=== PATIENT | female | born 1960 | race African-American/Black ===

== ENCOUNTER → 2016-05-27 | Outpatient (CLI) | payer OTHER | LOC: RAD 14:30 | PROVIDERS: ATTEND Physician Assistant | DX: R05 Cough (principal) | CPT/HCPCS: 71020 ==

== ENCOUNTER → 2016-07-17 | Outpatient (CLI) | payer OTHER ==
--- NOTE | 2016-07-17 18:34 | RADIOLOGY REPORT (SQ) ---
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 NUMBER OF VIEWS: Three views. TECHNIQUE: AP, lateral and oblique radiographic images acquired of the left foot. LIMITATIONS: None. FINDINGS: MINERALIZATION: Normal. 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 No acute osseous abnormality is seen. JOINTS: No effusions. SOFT TISSUES: No soft tissue swelling. No foreign body. OTHER: No other significant finding. IMPRESSION: Findings as described. TECHNICAL DOCUMENTATION: JOB ID: [id number] [employer]- All Rights Reserved
== END ==
LOC: OD 16:17
PROVIDERS: ATTEND Podiatrist Foot & Ankle Surgery
DX: Q66.9 Congenital deformity of feet, unspecified (principal)

== ENCOUNTER → 2016-07-25 | Outpatient (CLI) | payer OTHER ==
[2016-07-25 11:48] LABS: ABSOLUTE EOSINOPHILS # (AUTO) 0.2 10^3/uL (0.0-0.6); ABSOLUTE LYMPHOCYTES (AUTO) 1.3 10^3/uL (0.5-4.7); ABSOLUTE MONOCYTES (AUTO) 0.5 10^3/uL (0.1-1.4); BASOPHILS % (AUTO) 0.8 % (0-2); EOSINOPHILS % (AUTO) 3.4 % (0-6); HEMOGLOBIN 11.8 g/dL (12.0-15.5); HGB HCT DIFFERENCE -1.6; LYMPHOCYTES % (AUTO) 25.7 % (13-45); MEAN CORPUSCULAR HEMOGLOBIN 27.4 pg (27.0-33.4); MEAN CORPUSCULAR VOLUME 86 fl (80-97); MONOCYTES % (AUTO) 9.7 % (3-13); RED BLOOD COUNT 4.31 10^6/uL (3.72-5.28); RED CELL DISTRIBUTION WIDTH 13.7 % (11.5-14.0); SEGMENTED NEUTROPHILS % (AUTO) 60.4 % (42-78)
[2016-07-25 12:09] LABS: CHOLESTEROL 221.01 mg/dL (0-200); Direct HDL 69 mg/dL (>40); TRIGLYCERIDES 76 mg/dL (<150)
[2016-07-25 12:19] LABS: DIRECT LDL 98 mg/dL (<100)
== END ==
LOC: LAB 11:09
PROVIDERS: ATTEND Physician Assistant
DX: I10 Essential (primary) hypertension (principal); D50.8 Other iron deficiency anemias; E78.00 Pure hypercholesterolemia, unspecified; E55.9 Vitamin D deficiency, unspecified; Z79.899 Other long term (current) drug therapy; Z12.11 Encounter for screening for malignant neoplasm of colon
CPT/HCPCS: 36415; 80061; 82272; 82306; 82728; 84443; 85025

== ENCOUNTER 2016-08-08 08:46 | Day surgery (SDC) | payer OTHER ==
[2016-08-07 11:21] LABS: APPEARANCE,URINE CLEAR; BILIRUBIN,URINE NEGATIVE (NEGATIVE); GLUCOSE, URINE NEGATIVE (NEGATIVE); KETONES,URINE NEGATIVE (NEGATIVE); LEUKOCYTE ESTERASE,URINE NEGATIVE (NEGATIVE); NITRITE,URINE NEGATIVE (NEGATIVE); PROTEIN,URINE NEGATIVE (NEGATIVE); URINE SPECIFIC GRAVITY 1.014; UROBILINOGEN,URINE NEGATIVE mg/dL (<2.0)
[~2016-08-08 08:46] MED LIST: CEFAZOLIN 1 GM/D5W RTU 1 GM/50 ML RTUPB IV SCH; RINGERS SOLUTION,LACTATED 1,000 ML IV PRN
[2016-08-08] MEDS ORDERED: LIDOCAINE 2% INJ (20 MG/ML) 20 ML MDV ONE (09:32)
[2016-08-08] MEDS ORDERED: BUPIVACAINE HCL 0.5 % INJ/PF 30 ML SDV ONE (09:32)
[2016-08-08] MEDS ORDERED: FENTANYL CITRATE INJ/PF 100 MCG/2 ML AMPUL ONE (09:39)
[2016-08-08] MEDS ORDERED: MIDAZOLAM 2 MG/2 ML INJ ONE (09:39)
[2016-08-08] MEDS ORDERED: PROPOFOL INJ 200 MG/20 ML VIAL IV ONE (09:39)
[2016-08-08] MEDS ORDERED: DEXAMETHASONE SOD PHOSPHATE INJ 4 MG/1 ML VIAL ONE (11:11)
[2016-08-08] MEDS ORDERED: ONDANSETRON HCL INJ/PF 4 MG/2 ML SDV ONE (11:11)
--- NOTE | 2016-08-08 13:09 | [facility] OPERATIVE REPORT E ---
[facility] Operative Report NAME: SHADI TOLENTINO AGE: 55Y DATE OF SURGERY: ROOM: PREOPERATIVE DIAGNOSES: 1. Tailor bunion, left foot. 2. Digiti quinti varus, fifth toe, left foot. POSTOPERATIVE DIAGNOSIS: 1. Tailor bunion, left foot. 2. Digiti quinti varus, fifth toe, left foot. OPERATION: 1. Osteotomy, fifth metatarsal head, left foot. 2. Phalangectomy, fifth toe, left foot. SURGEON: KAT MCKENZIE D.P.M. INTRAOPERATIVE FINDINGS: Dislocation of the fifth metatarsophalangeal joint with diffuse metatarsal deviating laterally and throwing the fifth toe in an advanced varus location. This deviation of the fifth has created very painful, soft corns at the adjacent sides of the fourth and fifth toes. Intraoperative findings were confirmed clinically and radiographically. PROCEDURE: With the patient laying in the dorsal recumbent position, the left foot and leg were prepped and draped in the usual standard sterile orthopedic manner. After the local anesthesia was administered, which was a regional block infiltrating around the surgical field with a 50/50 mixture of 2% Xylocaine and 0.5% Marcaine, after the anesthetic effect was accomplished, the left leg was elevated approximately for 2 minutes and the left ankle pneumatic tourniquet was inflated up to 250 mmHg after the blood was exsanguinated from the left foot. The left leg was brought to the level of the table. Attention was directed right over the fifth metatarsophalangeal joint. A curvilinear incision was placed right over the joint. The initial incision was deepened. The superficial and deep subcutaneous tissues were dissected via blunt and sharp dissection. By this time, all bleeders were ligated. All vital structures were identified and protected from surgical trauma. Next, the periosteum was resected off bone and the level of the surgical neck of the fifth metatarsal was established. The osteotomy was marked and it was performed right at this anatomical area. This was an oblique osteotomy with 45 degrees of angulation to the long axis of the fifth metatarsal. The obliquity was from the medial proximal to lateral distal direction. The osteotomy was performed from dorsal to plantar direction, a [id number] osteotomy. After that, the head was shifted medially and slightly dorsally. The fifth metatarsophalangeal joint was aligned at this point. A protruding wedge of bone on the very distal lateral aspect of the fifth metatarsal was resected. With realignment of the fifth metatarsophalangeal joint, the fifth toe acquired a hammering deformity at this point. The decision was made to straighten the fifth toe in order to remove the fracture deformities of the digit. A curvilinear incision was placed right over the fifth toe. The initial incision was deepened. The superficial and deep subcutaneous tissues were dissected via blunt and sharp dissection. Again, all bleeders were ligated. All vital structures were protected from surgical trauma. Next, a transverse incision was placed right over the joint all the way through the tissue. Fractures were dissected off bone and the head of the proximal phalanx was brought into the surgical field. The head of the proximal phalanx was very irregular and hypertrophic. The very distal portion of the phalanx was removed. Enough bone was resected to allow the fifth toe to acquire a rectus position. The distal portion of the proximal phalanx was also remodeled to a more normal anatomical configuration. At this point, final evaluation was conducted of the two surgical sites. Correction was extremely satisfactory. At this point, the left ankle pneumatic tourniquet was deflated. Circulation to the left foot returned to normal immediately as the normal digital temperature became apparent. After that, both surgical sites were irrigated with copious amounts of sterile saline solution. At first, the capsule and fractures around the proximal interphalangeal joint of the fifth toe and the fifth metatarsophalangeal joints were closed with 3-0 Vicryl. The subcutaneous tissues from deep to superficial were closed with 3-0 Vicryl at both surgical sites and finally, the skin edges were repositioned and anchored down with 4-0 nylon using a continuous interlocking stitch. At this point, a Betadine compression dressing was applied around the surgical foot, which was followed with an Mohinder bandage and a surgical shoe. The patient tolerated all procedures well, left the operating room with stable vital signs and in good condition. The patient was take to the recovery room, alert, conscious and oriented. There are no permanent disabilities anticipated at this time. The patient was discharged home with instructions for postoperative care at home. The patient was allowed to return to a normal diet. The patient was given postoperative medications per Pain Medicine and antibiotics. The patient was instructed to ambulate only with crutches without bearing any weight on the left foot. DICTATING PHYSICIAN: KAT MCKENZIE D.P.M. [id number] PHY#: [id number] ID: [id number] JOB#: [id number] ACCT: [id number] cc:KAT MCKENZIE D.P.M. > MTDD
== END 2016-08-08 12:13 | disposition home or self-care (01) ==
LOC: SC 08:46
PROVIDERS: ATTEND Podiatrist Foot & Ankle Surgery
PROC: 0QBP0ZZ Excision of Left Metatarsal, Open Approach (ICD-10-PCS; 2016-08-08)
PROC: 0QSP0ZZ Reposition Left Metatarsal, Open Approach (ICD-10-PCS; 2016-08-08)
PROC: 0QSR0ZZ Reposition Left Toe Phalanx, Open Approach (ICD-10-PCS; 2016-08-08)
PROC: 0QBR0ZZ Excision of Left Toe Phalanx, Open Approach (ICD-10-PCS; principal; 2016-08-08 09:45)
DX: M21.622 Bunionette of left foot (principal); M21.172 Varus deformity, not elsewhere classified, left ankle; M19.90 Unspecified osteoarthritis, unspecified site; I10 Essential (primary) hypertension; K21.9 Gastro-esophageal reflux disease without esophagitis; E07.9 Disorder of thyroid, unspecified; Z79.899 Other long term (current) drug therapy; Z79.1 Long term (current) use of non-steroidal anti-inflammatories (NSAID)
CPT/HCPCS: 81001; 28124; 28110; J2250; J3490; J0690; J1100; J3010; J2405; J2704; 1480

== ENCOUNTER → 2016-08-14 | Outpatient (CLI) | payer OTHER ==
--- NOTE | 2016-08-14 16:39 | RADIOLOGY REPORT (SQ) ---
EXAM DESCRIPTION: FOOT LEFT COMPLETE COMPLETED DATE/TIME: 08/14/2016 4:09 pm REASON FOR STUDY: OTHER SPECIFIED POSTPROCEDURAL STATES Z98.890 OTHER SPECIFIED POSTPROCEDURAL STAT ES COMPARISON: 07/17/2016 left foot films NUMBER OF VIEWS: Three views. TECHNIQUE: AP, lateral and oblique radiographic images acquired of the left foot. LIMITATIONS: None. FINDINGS: Since the prior films on 07/17/2016, patient has had corrective surgery on the left 5th toe. 8 distal 5th metatarsal osteotomy is present in good alignment. There is been bony partial resection of the 5th toe proximal phalanx and distal phalanx at the interp halangeal joint. Joint space is widened. There is slight valgus angulation at the 5th toe interphal angeal joint. Small dorsal calcaneal spur. Mild bony spurring at the 1st tarsometatarsal joint IMPRESSION: Slight valgus angulation of the 5th toe at the level of the interphalangeal joint. The distal 5th metatarsal osteotomy is in good alignment. TECHNICAL DOCUMENTATION: JOB ID: [id number] [employer]- All Rights Reserved
== END ==
LOC: OD 15:48
PROVIDERS: ATTEND Podiatrist Foot & Ankle Surgery
DX: Z98.890 Other specified postprocedural states (principal)

== ENCOUNTER → 2016-09-25 | Outpatient (CLI) | payer OTHER ==
--- NOTE | 2016-09-26 17:55 | RADIOLOGY REPORT (SQ) ---
EXAM DESCRIPTION: FOOT LEFT COMPLETE COMPLETED DATE/TIME: 09/25/2016 11:56 am REASON FOR STUDY: POST-OP LT FOOT Z98.890 OTHER SPECIFIED POSTPROCEDURAL STATES COMPARISON: Left foot films 08/14/2016, 07/17/2016 NUMBER OF VIEWS: Three views. TECHNIQUE: AP, lateral and oblique radiographic images acquired of the left foot. LIMITATIONS: None. FINDINGS: MINERALIZATION: Normal. BONES: Post osteotomy, distal left 5th metatarsal metaphysis. Since 08/14/2016, there has been further demineralization of the left 5th metatarsal head. Minimal bony callus at the osteotomy site. No ma lalignment at the osteotomy site. JOINTS: No effusions. SOFT TISSUES: No soft tissue swelling. No foreign body. OTHER: No other significant finding. IMPRESSION: Minimal callus at the 5th metatarsal osteotomy. TECHNICAL DOCUMENTATION: JOB ID: [id number] [employer]- All Rights Reserved
== END ==
LOC: OD 11:43
PROVIDERS: ATTEND Podiatrist Foot & Ankle Surgery
DX: Z98.890 Other specified postprocedural states (principal)

== ENCOUNTER → 2016-10-30 | Outpatient (CLI) | payer OTHER ==
--- NOTE | 2016-10-30 10:11 | RADIOLOGY REPORT (SQ) ---
EXAM DESCRIPTION: FOOT LEFT COMPLETE COMPLETED DATE/TIME: 10/30/2016 10:00 am REASON FOR STUDY: POST-OP Z98.890 OTHER SPECIFIED POSTPROCEDURAL STATES COMPARISON: 07/17/2016, 08/14/2016, 09/25/2016 NUMBER OF VIEWS: Three views. TECHNIQUE: AP, lateral and oblique radiographic images acquired of the left foot. LIMITATIONS: None. FINDINGS: At the left 5th metatarsal distal metaphysis osteotomy, a persistent lucency is present wo rrisome for delayed union. Along the 4th metatarsal midshaft, there is periosteal new bone along its lateral aspect, similar ove r the series of exams possibly related to an old stress fracture. Mild joint space narrowing at the 1st metatarsophalangeal joint without bulky bony spurring. No acute fracture. No malalignment. Small bony spur at the calcaneal attachment of the Achilles ten don. IMPRESSION: Delayed union of the left 5th distal metatarsal metaphysis TECHNICAL DOCUMENTATION: JOB ID: [id number] [employer]- All Rights Reserved
== END ==
LOC: OD 09:41
PROVIDERS: ATTEND Podiatrist Foot & Ankle Surgery
DX: Z98.890 Other specified postprocedural states (principal); S92.352G Displaced fracture of fifth metatarsal bone, left foot, subsequent encounter for fracture with delayed healing

== ENCOUNTER → 2016-11-28 | Outpatient (CLI) | payer OTHER ==
--- NOTE | 2016-11-28 09:37 | RADIOLOGY REPORT (SQ) ---
EXAM DESCRIPTION: FOOT LEFT COMPLETE COMPLETED DATE/TIME: 11/28/2016 9:09 am REASON FOR STUDY: OTHER DEFORMITIES OF TOE(S) (ACQUIRED), LT FOOT, CONGENITAL DEFORMITY OF FE Q66.9 CONGENITAL DEFORMITY OF FEET, UNSPECIFIED M20.5X2 OTHER DEFORMITIES OF TOE(S) (ACQUIRED), LEFT FOOT COMPARISON: 10/30/2016 NUMBER OF VIEWS: Three views. TECHNIQUE: Weightbearing AP, lateral and oblique radiographic images acquired of the left foot. LIMITATIONS: None. FINDINGS: MINERALIZATION: Normal. BONES: No acute fracture or dislocation. There appears to be partial bony union of the previously de scribed osteotomy at the level of the distal 5th metatarsal with callus formation being identified. The previously described periosteal new bone along the lateral aspect of the 4th metatarsal appears u nchanged. . JOINTS: No effusions. SOFT TISSUES: No soft tissue swelling. No foreign body. OTHER: Achilles tendon spurring is again identified. IMPRESSION: On the current study there appears to be partial bony union of the previously described osteotomy at the level of the distal 5th metatarsal as noted above. Other findings as noted above TECHNICAL DOCUMENTATION: JOB ID: [id number] [employer]- All Rights Reserved
== END ==
LOC: OD 08:31
PROVIDERS: ATTEND Podiatrist Foot & Ankle Surgery
DX: Z98.890 Other specified postprocedural states (principal)

== ENCOUNTER → 2017-01-22 | Outpatient (CLI) | payer OTHER ==
[2017-01-22 08:49] LABS: ABSOLUTE EOSINOPHILS # (AUTO) 0.3 10^3/uL (0.0-0.6); ABSOLUTE LYMPHOCYTES (AUTO) 1.6 10^3/uL (0.5-4.7); ABSOLUTE MONOCYTES (AUTO) 0.5 10^3/uL (0.1-1.4); ABSOLUTE NEUT (AUTO) 3.8 10^3/uL (1.7-8.2); BASOPHILS % (AUTO) 0.7 % (0-2); EOSINOPHILS % (AUTO) 4.9 % (0-6); HEMATOCRIT 35.6 % (36.0-47.0); HEMOGLOBIN 11.7 g/dL (12.0-15.5); HGB HCT DIFFERENCE -0.5; LYMPHOCYTES % (AUTO) 25.2 % (13-45); MEAN CORPUSCULAR HEMOGLOBIN 27.7 pg (27.0-33.4); MEAN CORPUSCULAR HGB CONC 32.9 g/dL (32.0-36.0); MEAN CORPUSCULAR VOLUME 84 fl (80-97); MONOCYTES % (AUTO) 7.5 % (3-13); RED BLOOD COUNT 4.24 10^6/uL (3.72-5.28); RED CELL DISTRIBUTION WIDTH 13.8 % (11.5-14.0); SEGMENTED NEUTROPHILS % (AUTO) 61.7 % (42-78); WHITE BLOOD COUNT 6.2 10^3/uL (4.0-10.5)
[2017-01-22 09:10] LABS: ALANINE AMINOTRANSFERASE 35 U/L (9-52); ALBUMIN 4.2 g/dL (3.5-5.0); ALKALINE PHOSPHATASE 91 U/L (38-126); ANION GAP 10 (5-19); ASPARTATE AMINO TRANSFERASE 23 U/L (14-36); BILIRUBIN,DIRECT 0.2 mg/dL (0.0-0.4); BILIRUBIN,TOTAL 0.2 mg/dL (0.2-1.3); BLOOD UREA NITROGEN 15 mg/dL (7-20); CALCIUM 9.7 mg/dL (8.4-10.2); CARBON DIOXIDE 29 mmol/L (22-30); CHLORIDE 104 mmol/L (98-107); CHOLESTEROL 226.56 mg/dL (0-200); CREATININE RESULT 1.01 mg/dL (0.52-1.25); Direct HDL 77 mg/dL (>40); GLUCOSE 95 mg/dL (75-110); POTASSIUM 4.4 mmol/L (3.6-5.0); SODIUM 142.5 mmol/L (137-145); TOTAL PROTEIN 7.3 g/dL (6.3-8.2); TRIGLYCERIDES 56 mg/dL (<150); URIC ACID 5.7 mg/dL (2.5-7.5)
[2017-01-22 09:22] LABS: DIRECT LDL 113 mg/dL (<100)
== END ==
LOC: LAB 08:12
PROVIDERS: ATTEND Physician Assistant
DX: E78.2 Mixed hyperlipidemia (principal); E55.9 Vitamin D deficiency, unspecified; M10.9 Gout, unspecified; D50.8 Other iron deficiency anemias
CPT/HCPCS: 36415; 80053; 80061; 82306; 82728; 84550; 85025

== ENCOUNTER → 2017-09-03 | Outpatient (CLI) | payer OTHER ==
[2017-09-03 08:55] LABS: ABSOLUTE BASOPHILS # (AUTO) 0.1 10^3/uL (0.0-0.2); ABSOLUTE EOSINOPHILS # (AUTO) 0.2 10^3/uL (0.0-0.6); ABSOLUTE LYMPHOCYTES (AUTO) 1.4 10^3/uL (0.5-4.7); ABSOLUTE MONOCYTES (AUTO) 0.5 10^3/uL (0.1-1.4); ABSOLUTE NEUT (AUTO) 2.9 10^3/uL (1.7-8.2); BASOPHILS % (AUTO) 1.1 % (0-2); EOSINOPHILS % (AUTO) 4.5 % (0-6); HEMATOCRIT 35.9 % (36.0-47.0); HEMOGLOBIN 11.9 g/dL (12.0-15.5); LYMPHOCYTES % (AUTO) 28.1 % (13-45); MEAN CORPUSCULAR HEMOGLOBIN 27.8 pg (27.0-33.4); MEAN CORPUSCULAR HGB CONC 33.2 g/dL (32.0-36.0); MEAN CORPUSCULAR VOLUME 84 fl (80-97); MONOCYTES % (AUTO) 9.8 % (3-13); PLATELET COUNT 238 10^3/uL (150-450); RED BLOOD COUNT 4.27 10^6/uL (3.72-5.28); RED CELL DISTRIBUTION WIDTH 13.8 % (11.5-14.0); SEGMENTED NEUTROPHILS % (AUTO) 56.5 % (42-78); TOTAL CELLS COUNTED % (AUTO) 100 %; WHITE BLOOD COUNT 5.1 10^3/uL (4.0-10.5)
[2017-09-03 09:11] LABS: ALANINE AMINOTRANSFERASE 24 U/L (9-52); ALBUMIN 4.1 g/dL (3.5-5.0); ALKALINE PHOSPHATASE 85 U/L (38-126); ANION GAP 10 (5-19); ASPARTATE AMINO TRANSFERASE 25 U/L (14-36); BILIRUBIN,DIRECT 0.1 mg/dL (0.0-0.4); BILIRUBIN,TOTAL 0.5 mg/dL (0.2-1.3); BLOOD UREA NITROGEN 13 mg/dL (7-20); CALCIUM 9.3 mg/dL (8.4-10.2); CARBON DIOXIDE 30 mmol/L (22-30); CHLORIDE 105 mmol/L (98-107); CHOLESTEROL 202.92 mg/dL (0-200); GLUCOSE 86 mg/dL (75-110); TOTAL PROTEIN 7.3 g/dL (6.3-8.2); TRIGLYCERIDES 118 mg/dL (<150); URIC ACID 7.3 mg/dL (2.5-7.5)
[2017-09-03 09:21] LABS: DIRECT LDL 94 mg/dL (<100)
== END ==
LOC: LAB 07:40
PROVIDERS: ATTEND Physician Assistant
DX: E78.2 Mixed hyperlipidemia (principal); D50.8 Other iron deficiency anemias
CPT/HCPCS: 36415; 80053; 80061; 82728; 84550; 85025

== ENCOUNTER → 2018-03-19 | Outpatient (CLI) | payer OTHER ==
[2018-03-19 13:41] LABS: ALANINE AMINOTRANSFERASE 19 U/L (9-52); ALBUMIN 4.4 g/dL (3.5-5.0); ALKALINE PHOSPHATASE 84 U/L (38-126); ANION GAP 11 (5-19); ASPARTATE AMINO TRANSFERASE 24 U/L (14-36); BILIRUBIN,DIRECT 0.2 mg/dL (0.0-0.4); BILIRUBIN,TOTAL 0.6 mg/dL (0.2-1.3); BLOOD UREA NITROGEN 15 mg/dL (7-20); CALCIUM 9.5 mg/dL (8.4-10.2); CARBON DIOXIDE 29 mmol/L (22-30); CHLORIDE 104 mmol/L (98-107); CHOLESTEROL 222.44 mg/dL (0-200); GLUCOSE 87 mg/dL (75-110); POTASSIUM 4.3 mmol/L (3.6-5.0); SODIUM 143.7 mmol/L (137-145); TOTAL PROTEIN 7.2 g/dL (6.3-8.2); TRIGLYCERIDES 77 mg/dL (<150); URIC ACID 6.4 mg/dL (2.5-7.5)
[2018-03-19 13:43] LABS: ABSOLUTE EOSINOPHILS # (AUTO) 0.2 10^3/uL (0.0-0.6); ABSOLUTE LYMPHOCYTES (AUTO) 1.5 10^3/uL (0.5-4.7); ABSOLUTE MONOCYTES (AUTO) 0.5 10^3/uL (0.1-1.4); ABSOLUTE NEUT (AUTO) 2.9 10^3/uL (1.7-8.2); BASOPHILS % (AUTO) 0.9 % (0-2); HEMATOCRIT 36.3 % (36.0-47.0); HEMOGLOBIN 11.7 g/dL (12.0-15.5); MEAN CORPUSCULAR HEMOGLOBIN 27.7 pg (27.0-33.4); MEAN CORPUSCULAR HGB CONC 32.2 g/dL (32.0-36.0); MEAN CORPUSCULAR VOLUME 86 fl (80-97); MONOCYTES % (AUTO) 9.9 % (3-13); PLATELET COUNT 272 10^3/uL (150-450); RED BLOOD COUNT 4.22 10^6/uL (3.72-5.28); RED CELL DISTRIBUTION WIDTH 14.4 % (11.5-14.0); SEGMENTED NEUTROPHILS % (AUTO) 56.2 % (42-78); TOTAL CELLS COUNTED % (AUTO) 100 %; WHITE BLOOD COUNT 5.2 10^3/uL (4.0-10.5)
[2018-03-19 13:52] LABS: DIRECT LDL 114 mg/dL (<100)
== END ==
LOC: LAB 12:10
PROVIDERS: ATTEND Physician Assistant
DX: E78.2 Mixed hyperlipidemia (principal); M10.9 Gout, unspecified; D50.8 Other iron deficiency anemias
CPT/HCPCS: 36415; 80053; 80061; 82728; 84550; 85025

== ENCOUNTER → 2018-06-14 | Outpatient (CLI) | payer OTHER ==
--- NOTE | 2018-06-14 11:27 | WOMENS IMAGING REPORT ---
EXAM DESCRIPTION: 3D SCREENING MAMMO BILAT COMPLETED DATE/TIME: 06/14/2018 10:40 am REASON FOR STUDY: Z12.31 ROUTINE 3D BILATERAL SCREENING Z12.31 ENCNTR SCREEN MAMMOGRAM FOR MALIGNAN T NEOPLASM OF KIM COMPARISON: [id number] TECHNIQUE: Standard craniocaudal and mediolateral oblique views of each breast recorded using digita l acquisition and breast tomosynthesis. LIMITATIONS: Positioning left breast. FINDINGS: Findings present which are benign by mammographic criteria. No suspicious masses, calcific ations or architectural distortion. Pertinent benign findings: Architectural distortion left. Read with the assistance of CAD. .[facility] - R2 [employer] Version 9.2 Benign mammographic findings may include one or more of the following: Smooth masses, popcorn/rim/coa rse calcifications, asymmetries, post-procedure changes, and lesions with long-standing stability. IMPRESSION: BENIGN MAMMOGRAPHIC FINDINGS. BIRADS 2 BREAST DENSITY: b. There are scattered areas of fibroglandular density. BIRAD: 2 BENIGN FINDING(S) RECOMMENDATION: ROUTINE SCREENING COMMENT: The patient has been notified of the results by letter per MQSA requirements. Additional no tification policies are in place for contacting patient with suspicious or incomplete findings. Quality ID #225: The [employer] recommends an annual screening mammogram for women aged 40 years or over. This facility utilizes a reminder system to ensure that all patients receive reminder letters, and/or direct phone calls for appointments. This includes reminders for routine scr eening mammograms, diagnostic mammograms, or other Breast Imaging Interventions when appropriate. Th is patient will be placed in the appropriate reminder system. TECHNICAL DOCUMENTATION: FINDING NUMBER: (1) ASSESSMENT: (1) JOB ID: [id number] [employer],- All Rights Reserved Reading location - IP/workstation name: [email or web address]
== END ==
LOC: WI 10:21
PROVIDERS: ATTEND Internal Medicine
DX: Z12.31 Encounter for screening mammogram for malignant neoplasm of breast (principal)
CPT/HCPCS: 77063; 77067

== ENCOUNTER → 2018-11-15 | Outpatient (CLI) | payer OTHER ==
--- NOTE | 2018-11-15 13:30 | RADIOLOGY REPORT (SQ) ---
EXAM DESCRIPTION: KNEE RIGHT 2 VIEWS COMPLETED DATE/TIME: 11/15/2018 11:06 am REASON FOR STUDY: PAIN IN RIGHT KNEE M25.561 PAIN IN RIGHT KNEE COMPARISON: None. NUMBER OF VIEWS: Two views. TECHNIQUE: AP and lateral radiographic images acquired of the right knee. LIMITATIONS: None. FINDINGS: MINERALIZATION: Normal. BONES: No acute fracture or dislocation. No worrisome bone lesions. JOINT: No effusion. SOFT TISSUES: No soft tissue swelling. No radio-opaque foreign body. OTHER: No other significant finding. IMPRESSION: NEGATIVE STUDY OF THE RIGHT KNEE. NO RADIOGRAPHIC EVIDENCE OF ACUTE INJURY. TECHNICAL DOCUMENTATION: JOB ID: [id number] [employer]- All Rights Reserved Reading location - IP/workstation name: [email or web address]
== END ==
LOC: OD 10:33
PROVIDERS: ATTEND Physician Assistant
DX: M25.561 Pain in right knee (principal)

== ENCOUNTER → 2018-12-02 | Outpatient (CLI) | payer OTHER ==
--- NOTE | 2018-12-02 18:43 | RADIOLOGY REPORT (SQ) ---
EXAM DESCRIPTION: HIP LEFT AP/LATERAL COMPLETED DATE/TIME: 12/02/2018 4:59 pm REASON FOR STUDY: PAIN IN LEFT HIP M25.552 PAIN IN LEFT HIP COMPARISON: None. NUMBER OF VIEWS: Two views. TECHNIQUE: AP pelvis and additional frog-leg view of the left hip. LIMITATIONS: None. FINDINGS: MINERALIZATION: Normal. LEFT HIP: No fracture or dislocation. No worrisome bone lesions. RIGHT HIP: No fracture or dislocation. No worrisome bone lesions. PUBIS AND ISCHIUM: No fracture. PELVIS: No fracture. SACRUM: No fracture or dislocation. No worrisome bone lesions. LOWER LUMBAR SPINE: No fracture or dislocation. No worrisome bone lesions. No significant disc disea se. SOFT TISSUES: No findings. OTHER: No other significant finding. IMPRESSION: NEGATIVE STUDY OF THE LEFT HIP AND PELVIS. NO RADIOGRAPHIC EVIDENCE OF ACUTE INJURY. TECHNICAL DOCUMENTATION: JOB ID: [id number] [employer]- All Rights Reserved Reading location - IP/workstation name: [email or web address]
== END ==
LOC: OD 16:47
PROVIDERS: ATTEND Physician Assistant
DX: M25.552 Pain in left hip (principal)

== ENCOUNTER → 2019-06-29 | Outpatient (CLI) | payer OTHER ==
--- NOTE | 2019-06-29 13:44 | WOMENS IMAGING REPORT ---
EXAM DESCRIPTION: 3D SCREENING MAMMO BILAT IMAGES COMPLETED DATE/TIME: 06/29/2019 10:08 am REASON FOR STUDY: Z12.31 ENCOUNTER FOR SCREENING MAMMOGRAM FOR MALIGNANT NEOPLASM OF BREAST Z12.31 ENCNTR SCREEN MAMMOGRAM FOR MALIGNANT NEOPLASM OF KIM COMPARISON: 2016 to 2018 EXAM PARAMETERS: Standard craniocaudal and mediolateral oblique views of each breast recorded using digital acquisition and breast tomosynthesis. Read with the assistance of CAD. .[facility] - [employer] Version 9.2 LIMITATIONS: None FINDINGS: Findings present which are benign by mammographic criteria. No suspicious masses, calcific ations or architectural distortion. Pertinent benign findings: Treatment changes on the left Benign mammographic findings may include one or more of the following: Smooth masses, popcorn/rim/coa rse calcifications, asymmetries, post-procedure changes, and lesions with long-standing stability. IMPRESSION: BENIGN MAMMOGRAPHIC FINDINGS. BIRADS 2 BREAST DENSITY: b. There are scattered areas of fibroglandular density. BIRAD: ASSESSMENT: 2 BENIGN FINDING(S) RECOMMENDATION: ROUTINE SCREENING COMMENT: The patient has been notified of the results by letter per [place] requirements. Additional no tification policies are in place for contacting patient with suspicious or incomplete findings. Quality ID #225: The [employer] recommends an annual screening mammogram for women aged 40 years or over. This facility utilizes a reminder system to ensure that all patients receive reminder letters, and/or direct phone calls for appointments. This includes reminders for routine scr eening mammograms, diagnostic mammograms, or other Breast Imaging Interventions when appropriate. Th is patient will be placed in the appropriate reminder system. TECHNICAL DOCUMENTATION: FINDING NUMBER: (1) ASSESSMENT: (1) JOB ID: [id number] [employer]- All Rights Reserved Reading location - IP/workstation name: [email or web address]
== END ==
LOC: WI 09:38
PROVIDERS: ATTEND Internal Medicine
DX: Z12.31 Encounter for screening mammogram for malignant neoplasm of breast (principal)
CPT/HCPCS: 77063; 77067